=== PATIENT | male | born 1985 | race Caucasian/White ===

== ENCOUNTER 2017-01-06 09:08 | Emergency (ER) | payer SELFPAY ==
[~2017-01-06] VITALS: Ht 172.7 cm; Wt 62.7 kg
[2017-01-06] MEDS ORDERED: FLUORESCEIN (FLUOR-I-STRIPS) 1 MG STRIP OD ONE (09:45)
[2017-01-06] MEDS ORDERED: EYE WASH 120 ML BTL OD ONE (09:50)
[2017-01-06 19:37] VITALS: BP 117/74
== END 2017-01-06 10:29 | disposition home or self-care (01) ==
LOC: EDUNIT# 09:08 → ED 09:10
DX: H20.00 Unspecified acute and subacute iridocyclitis (principal); L42 Pityriasis rosea
CPT/HCPCS: 99283